=== PATIENT | male | born 1955 | race Caucasian/White ===

== ENCOUNTER 2018-07-29 10:12 | Emergency (ER) | payer MEDICARE, OTHER ==
[~2018-07-29] VITALS: Ht 177.8 cm; Wt 128.0 kg
[2018-07-29 10:15] VITALS: BP 152/89
[2018-07-29] MEDS ORDERED: ketorolac trometh. 30mg/ml inj. IM ONE (11:10)
== END 2018-07-29 18:10 | disposition home or self-care (01) ==
LOC: ER 10:12
DX: S16.1XXA Strain of muscle, fascia and tendon at neck level, initial encounter (principal); M79.605 Pain in left leg; G57.12 Meralgia paresthetica, left lower limb; E66.01 Morbid (severe) obesity due to excess calories; I25.10 Atherosclerotic heart disease of native coronary artery without angina pectoris; I10 Essential (primary) hypertension; F17.200 Nicotine dependence, unspecified, uncomplicated; G62.9 Polyneuropathy, unspecified; W08.XXXA Fall from other furniture, initial encounter; Y93.89 Activity, other specified; Y92.89 Other specified places as the place of occurrence of the external cause; Y99.9 Unspecified external cause status
CPT/HCPCS: 96372; 99284; J1885

== ENCOUNTER 2018-10-16 13:56 | Emergency (ER) | payer MEDICARE, OTHER ==
[~2018-10-16] VITALS: Ht 180.3 cm; Wt 124.8 kg
[2018-10-16 14:29] VITALS: BP 190/110
[2018-10-16] MEDS ORDERED: CYCL-1 PO (15:24)
[2018-10-16] MEDS ORDERED: IBUP-1984 PO (15:24)
[2018-10-16] MEDS ORDERED: ibuprofen tablet 400 MG TABLET PO ONE (15:25)
== END 2018-10-16 15:36 | disposition home or self-care (01) ==
LOC: ER 13:56
DX: M54.5 Low back pain (principal); G47.30 Sleep apnea, unspecified; I10 Essential (primary) hypertension; I25.10 Atherosclerotic heart disease of native coronary artery without angina pectoris; Z56.0 Unemployment, unspecified
CPT/HCPCS: 99283

== ENCOUNTER 2020-09-03 11:05 | Emergency (ER) | payer MEDICARE, MEDICAID ==
[~2020-09-03] VITALS: Ht 180.3 cm; Wt 129.5 kg
[~2020-09-03 11:05] MED LIST: CYCL-1 PO
[2020-09-03 11:16] VITALS: BP 153/106
[2020-09-03] MEDS ORDERED: PENI500T2 PO (12:04)
== END 2020-09-03 12:18 | disposition home or self-care (01) ==
LOC: ER 11:06
DX: K04.7 Periapical abscess without sinus (principal); I25.10 Atherosclerotic heart disease of native coronary artery without angina pectoris; I10 Essential (primary) hypertension; F17.200 Nicotine dependence, unspecified, uncomplicated; G47.30 Sleep apnea, unspecified; Z56.0 Unemployment, unspecified; Z79.2 Long term (current) use of antibiotics; Z79.899 Other long term (current) drug therapy
CPT/HCPCS: 10060; 41800; 99283; 99284